=== PATIENT | male | born 1990 | race Caucasian/White ===

== ENCOUNTER 2016-09-13 21:04 | Emergency (ER) | payer MEDICAID ==
[~2016-09-13] VITALS: Ht 167.6 cm; Wt 72.6 kg
[2016-09-13 21:04] VITALS: BP 150/89; PULSE 92; RESP 14; TEMP 98.9; O2SAT 99
--- NOTE | 2016-09-13 21:04 | NUR ---
Patient to ER bed 5 to gown for evaluation. Side rails up. Report given to LORRI Pickett.
--- NOTE | 2016-09-13 21:10 | NUR ---
DR. MAYFIELD AT BEDSIDE EXAMINING THE PT.
--- NOTE | 2016-09-13 21:15 | NUR ---
PT. TO ER [id number] BROUGHT IN BY EMS FROM LONG TERM FOR SUICIDAL IDEATION, PER PT. HE HAS A HX OF PARANOA SCHIZOPHRENIA AND DEPRESSION, TAKES PROZAC AND LORAZOPAM, STATES THAT HE HAS A HISTORY OF METH USE. PER PT. HE USES METH YESTERDAY IV, SMOKES WEED EVERYDAY, C/O AUDITORY AND VISUAL HALLUCINATIONS, STATES THAT VOICES ARE TELLING HIM TO HURT HIMSELF, STATES, " DO NOT FEEL LIKE LIVING ANYMORE". UPON ASKING STATES THAT HE HAS A PLAN OF POPPING HIS LORAZOPAM PILLS AND KILL HIMSELF IF LEAVES THE HOSPITAL RIGHT NOW, STATES LAST YEAR HE CUT HIS RIGHT WRIST, DENIES ANY OTHER MEDICAL HISTORY
[2016-09-13 21:33] LABS: BASOPHILS % (AUTO) 0.5 % (0.0-2.0); EOSINOPHILS # (AUTO) 0.2 K/uL (0.0-0.4); EOSINOPHILS % (AUTO) 1.8 % (0.0-4.0); HEMATOCRIT 44.3 % (36-54); HEMOGLOBIN 14.9 g/dL (14.0-18.0); LYMPHOCYTES # (AUTO) 2.1 K/uL (1.0-5.5); LYMPHOCYTES % (AUTO) 23.1 % (20.5-51.5); MEAN CORPUSCULAR HEMOGLOBIN 29 pg (27-31); MEAN CORPUSCULAR HGB CONC 34 % (32-36); MEAN CORPUSCULAR VOLUME 85 fL (79.0-98.0); MONOCYTES # (AUTO) 0.6 K/uL (0.0-1.0); MONOCYTES % (AUTO) 6.9 % (1.7-9.3); NEUTROPHILS # (AUTO) 6.1 K/uL (1.8-7.7); NEUTROPHILS % (AUTO) 67.7 % (40.0-70.0); PLATELET COUNT (AUTO) 435 K/uL (130-430); RED BLOOD CELL COUNT(AUTO) 5.23 MIL/uL (4.2-6.2); RED CELL DISTRIBUTION WIDTH 12.8 % (9.0-15.0)
--- NOTE | 2016-09-13 21:40 | NUR ---
SUICIDE RISK / LETHALITY ASSESSMENT COMPLETED, PLACED IN CHART
[2016-09-13 21:43] LABS: ANION GAP 5 (5-15); CALCIUM 8.9 mg/dL (8.4-11.0); CHLORIDE 100 mmol/L (98-107); GLUCOSE 101 mg/dL (70-99); POTASSIUM 3.3 mmol/L (3.5-5.1); SODIUM SERUM 136 mmol/L (136-145); UREA NITROGEN, BLOOD 8 mg/dL (8-21)
[2016-09-13 21:47] LABS: ALANINE AMINOTRANSFERASE 55 U/L (12-78); ASPARTATE AMINOTRANSFERASE 29 U/L (10-37); GFR AFRICAN AMERICAN 151 mL/min (>90); SALICYLATE 2 mg/dL (3-30)
[2016-09-13 21:51] LABS: ACETAMINOPHEN < 1 ug/mL (1-30); ALCOHOL, BLOOD < 3 mg/dL (<10)
--- NOTE | 2016-09-13 22:04 | NUR ---
PT. RESTING CALMLY IN BED, NO HALLUCINATIONS AT THIS TIME
--- NOTE | 2016-09-13 22:49 | NUR ---
pt appeared resting comfortably in bed, will continue to monitor
--- NOTE | 2016-09-13 23:55 | NUR ---
Pt was assessed and attended, Pt denies any distress or complain at the moment
--- NOTE | 2016-09-14 01:00 | NUR ---
Pt appeared resting in bed, no sign of acute distress
[2016-09-14 02:01] LABS: BARBITURATE, URINE NEGATIVE (NEG <=200); BENZODIAZEPINE, URINE NEGATIVE (NEG <=150); CANNABINOID, URINE NEGATIVE (NEG <=50); COCAINE, URINE NEGATIVE (NEG <=150); METHAMPHETAMINES SCREEN,URINE POSITIVE (NEG <=500); OPIATE, URINE NEGATIVE (NEG <=100); PHENCYCLIDINE SCREEN,URINE NEGATIVE (NEG <=25); UR TRICYCLIC ANTIDEPRESSANTS NEGATIVE (NEG <=300); URINE AMPHETAMINE POSITIVE (NEG <=500); URINE METHADONE NEGATIVE (NEG <=200); URINE OXYCODONE SCREEN NEGATIVE (NEG <=100); URINE PROPOXYPHENE SCREEN NEGATIVE (NEG <=300)
--- NOTE | 2016-09-14 02:20 | NUR ---
Pt appeared resting comfortably, will continue to monitor
--- NOTE | 2016-09-14 03:28 | NUR ---
Pt appeared resting comfortable in bed. Needs assessed and care attended. Pt verbalized that he feels comfortable
--- NOTE | 2016-09-14 04:17 | NUR ---
Spoke to [facility] department of mental health personnel Salome, gave report and pt was medically cleared by MD gomez. Salome stated that she will put in the request to come and evaluate pt as soon as they are avaiable.
--- NOTE | 2016-09-14 05:41 | NUR ---
Pt attended, food and water given. Pt stated that he currently does not have any auditory or visual hallucination. Will continue to monitor
--- NOTE | 2016-09-14 06:00 | NUR ---
at bedside evaluating and discussing with pt
--- NOTE | 2016-09-14 06:15 | NUR ---
Pt was evaluated by at bedside, was medically cleared and psychologically cleared, and was given Rx of Zyprexa from [facility]. Pt was offered psych consult and instructed to follow after discharge. Pt stated he does not hear any auditory or visual hallucination at the moment
[2016-09-14 06:30] VITALS: BP 136/70; PULSE 82; RESP 16; TEMP 97.6; O2SAT 99
--- NOTE | 2016-09-14 06:30 | NUR ---
Patient given written and verbal discharge instructions and verbalizes understanding. ER MD Oneill and MD Guerrero discussed with patient the results and treatment provided. Patient in stable condition. ID arm band removed. Rx of zyprexa given. Patient educated on pain management and to follow up with PMD and follow up with psych consult. Pain Scale 0/10 Opportunity for questions provided and answered.
== END 2016-09-14 06:30 | disposition home or self-care (01) ==
LOC: SED 21:04
DX: F15.20 Other stimulant dependence, uncomplicated (principal); F20.9 Schizophrenia, unspecified; F31.9 Bipolar disorder, unspecified
CPT/HCPCS: 36415; 80053; 80307; 85025; 99284; G0480; G0481; G0482